=== PATIENT | female | born 1935 | race Two or more races ===

== ENCOUNTER 2016-06-13 11:08 | Outpatient (CLI) | payer MEDICARE, OTHER | END 2016-06-13 11:10 | LOC: LAB 11:08 | DX: Z51.81 Encounter for therapeutic drug level monitoring (principal); Z79.01 Long term (current) use of anticoagulants; I48.91 Unspecified atrial fibrillation | CPT/HCPCS: 36415; 85610 ==

== ENCOUNTER 2016-06-20 10:22 | Outpatient (CLI) | payer MEDICARE, OTHER | END 2016-06-20 10:23 | LOC: LAB 10:22 | DX: I48.91 Unspecified atrial fibrillation (principal); Z79.01 Long term (current) use of anticoagulants | CPT/HCPCS: 36415; 85610 ==

== ENCOUNTER 2016-06-27 10:51 | Outpatient (CLI) | payer MEDICARE, OTHER | END 2016-06-27 10:52 | LOC: LAB 10:51 | DX: Z51.81 Encounter for therapeutic drug level monitoring (principal); Z79.01 Long term (current) use of anticoagulants; I48.91 Unspecified atrial fibrillation | CPT/HCPCS: 36415; 85610 ==

== ENCOUNTER 2016-07-11 11:27 | Outpatient (CLI) | payer MEDICARE, OTHER | END 2016-07-11 11:30 | LOC: LAB 11:27 | DX: Z51.81 Encounter for therapeutic drug level monitoring (principal); Z79.01 Long term (current) use of anticoagulants; I48.91 Unspecified atrial fibrillation | CPT/HCPCS: 36415; 85610 ==

== ENCOUNTER 2016-08-22 13:00 | Outpatient (CLI) | payer MEDICARE, OTHER | END 2016-08-22 13:01 | LOC: LAB 13:00 | DX: Z51.81 Encounter for therapeutic drug level monitoring (principal); Z79.01 Long term (current) use of anticoagulants; I48.91 Unspecified atrial fibrillation | CPT/HCPCS: 36415; 85610 ==

== ENCOUNTER 2016-09-18 13:31 | Outpatient (CLI) | payer MEDICARE, OTHER | END 2016-09-18 13:32 | LOC: LAB 13:31 | DX: Z51.81 Encounter for therapeutic drug level monitoring (principal); Z79.01 Long term (current) use of anticoagulants; I48.91 Unspecified atrial fibrillation | CPT/HCPCS: 36415; 85610 ==

== ENCOUNTER 2016-10-19 13:52 | Outpatient (CLI) | payer MEDICARE, OTHER | END 2016-10-19 13:53 | LOC: LAB 13:52 | DX: I48.91 Unspecified atrial fibrillation (principal); Z79.01 Long term (current) use of anticoagulants | CPT/HCPCS: 36415; 85610 ==

== ENCOUNTER 2016-12-19 12:09 | Outpatient (CLI) | payer MEDICARE, OTHER ==
[2016-12-19 12:32] LABS: APPEARANCE,URINE Cloudy (CLEAR); COLOR,URINE Yellow (YELLOW); OCCULT BLOOD,URINE 3+ (NEGATIVE); PH URINE 5.5 (5.0 - 8.0)
== END 2016-12-19 12:10 ==
LOC: LAB 12:09
DX: I48.91 Unspecified atrial fibrillation (principal); Z79.01 Long term (current) use of anticoagulants
CPT/HCPCS: 36415; 81002; 85610; 87086

== ENCOUNTER 2016-12-26 09:09 | Outpatient (CLI) | payer MEDICARE, OTHER | END 2016-12-26 09:10 | LOC: LAB 09:09 | DX: I48.91 Unspecified atrial fibrillation (principal); Z79.01 Long term (current) use of anticoagulants | CPT/HCPCS: 36415; 85610 ==

== ENCOUNTER 2017-01-02 12:15 | Outpatient (CLI) | payer MEDICARE, OTHER ==
[2017-01-02 12:32] LABS: APPEARANCE,URINE Clear (CLEAR); COLOR,URINE Yellow (YELLOW); OCCULT BLOOD,URINE Trace-lysed (NEGATIVE); PH URINE 5.5 (5.0 - 8.0); UROBILINOGEN URINE 0.2 Eu (0.2-1.0)
[2017-01-02 12:55] LABS: AMORPHOUS SEDIMENT,UR FEW (NEGATIVE)
== END 2017-01-02 12:16 ==
LOC: LAB 12:15
DX: N39.0 Urinary tract infection, site not specified (principal)
CPT/HCPCS: 36415; 81002; 85610; 87086

== ENCOUNTER 2017-01-09 13:19 | Outpatient (CLI) | payer MEDICARE, OTHER | END 2017-01-09 13:20 | LOC: LAB 13:19 | DX: I48.91 Unspecified atrial fibrillation (principal); Z79.01 Long term (current) use of anticoagulants | CPT/HCPCS: 36415; 85610 ==

== ENCOUNTER 2017-01-24 11:58 | Outpatient (CLI) | payer MEDICARE, OTHER | END 2017-01-24 12:05 | LOC: LAB 11:58 | DX: I48.91 Unspecified atrial fibrillation (principal); Z79.01 Long term (current) use of anticoagulants | CPT/HCPCS: 36415; 85610 ==

== ENCOUNTER 2017-01-30 11:59 | Outpatient (CLI) | payer MEDICARE, OTHER | END 2017-01-30 12:00 | LOC: LAB 11:59 | DX: I48.91 Unspecified atrial fibrillation (principal); Z79.01 Long term (current) use of anticoagulants | CPT/HCPCS: 36415; 85610 ==

== ENCOUNTER 2017-03-01 12:03 | Outpatient (CLI) | payer MEDICARE, OTHER ==
[2017-03-01 12:23] LABS: APPEARANCE,URINE Clear (CLEAR); COLOR,URINE Yellow (YELLOW); OCCULT BLOOD,URINE 1+ (NEGATIVE); PH URINE 6.5 (5.0 - 8.0); UROBILINOGEN URINE 0.2 Eu (0.2-1.0)
== END 2017-03-01 12:04 ==
LOC: LAB 12:03
DX: I48.91 Unspecified atrial fibrillation (principal); Z79.01 Long term (current) use of anticoagulants
CPT/HCPCS: 36415; 81002; 85610; 87086

== ENCOUNTER 2017-05-01 10:41 | Outpatient (CLI) | payer MEDICARE, OTHER ==
[2017-05-01 11:09] LABS: APPEARANCE,URINE Clear (CLEAR); COLOR,URINE Yellow (YELLOW); OCCULT BLOOD,URINE 3+ (NEGATIVE)
[2017-05-01 11:26] LABS: AMORPHOUS SEDIMENT,UR FEW (NEGATIVE)
== END 2017-05-01 10:42 ==
LOC: LAB 10:41
DX: I48.91 Unspecified atrial fibrillation (principal); Z79.01 Long term (current) use of anticoagulants; N39.0 Urinary tract infection, site not specified
CPT/HCPCS: 81002; 85610; 87086

== ENCOUNTER 2017-05-24 11:43 | Outpatient (CLI) | payer MEDICARE, OTHER | END 2017-05-24 12:21 | LOC: LAB 11:43 | DX: I48.91 Unspecified atrial fibrillation (principal); Z79.01 Long term (current) use of anticoagulants | CPT/HCPCS: 36415; 85610 ==

== ENCOUNTER 2017-06-14 11:39 | Outpatient (CLI) | payer MEDICARE, OTHER | END 2017-06-14 11:40 | LOC: LAB 11:39 | DX: I48.91 Unspecified atrial fibrillation (principal); Z79.01 Long term (current) use of anticoagulants | CPT/HCPCS: 36415; 85610 ==

== ENCOUNTER 2017-07-30 09:55 | Outpatient (CLI) | payer MEDICARE, OTHER ==
[2017-07-30 10:19] LABS: BASOPHILS % 0.5 (0.0-1.5); EOSINOPHILS % 1.3 % (0.0-6.8); MEAN CORPUSCULAR HEMOGLOBIN 28.8 pg (28.0-34.0); MEAN CORPUSCULAR VOLUME 99.4 fl (80.0-100.0); MONOCYTES % 7.4 % (0.0-11.0); NEUTROPHILS # 2.8 # k/uL (1.4-7.7)
[2017-07-30 10:41] LABS: eGFR (African) > 60; eGFR (Non-African) > 60
[2017-07-30 18:41] LABS: SERUM IRON 15 ug/dL (37-145)
[2017-07-30 21:29] LABS: ADENOVIRUS DNA NEGATIVE (NEGATIVE); BORDETELLA PERTUSSIS DNA NEGATIVE (NEGATIVE); SOURCE: NASOPHARYNGEAL SWAB
== END 2017-07-30 09:56 ==
LOC: LAB 09:55
DX: M79.1 Myalgia (principal); D50.0 Iron deficiency anemia secondary to blood loss (chronic); Z79.01 Long term (current) use of anticoagulants
CPT/HCPCS: 36415; 80053; 82728; 83540; 83550; 85025; 85610; 85651; 87486; 87581; 87633; 87798

== ENCOUNTER 2017-09-04 09:46 | Outpatient (CLI) | payer MEDICARE, OTHER ==
[2017-09-04 10:04] LABS: BASOPHILS % 0.8 (0.0-1.5); EOSINOPHILS % 1.5 % (0.0-6.8); MEAN CORPUSCULAR HEMOGLOBIN 25.1 pg (28.0-34.0); MEAN CORPUSCULAR VOLUME 85.8 fl (80.0-100.0); MONOCYTES % 8.7 % (0.0-11.0); NEUTROPHILS # 2.8 # k/uL (1.4-7.7)
[2017-09-04 16:00] LABS: SERUM IRON 30 ug/dL (37-145)
== END 2017-09-04 09:49 ==
LOC: LAB 09:46
DX: R53.83 Other fatigue (principal); D50.9 Iron deficiency anemia, unspecified
CPT/HCPCS: 36415; 82728; 83540; 83550; 85025

== ENCOUNTER 2017-09-10 14:21 | Outpatient (CLI) | payer MEDICARE, OTHER ==
[2017-09-10] MEDS ORDERED: IRON SUCROSE COMPLEX 200 MG in 0.9 % SODIUM CHLORIDE 250 ML IV SCH (14:30)
[2017-09-10] MEDS ORDERED: IRON SUCROSE COMPLEX 20 MG/ML 10ML VIAL IV ONE (14:30)
[2017-09-10] MEDS ORDERED: SALINE FLUSH 10 ML DISP.SYRIN IVF ONE (14:30)
[2017-09-10] MEDS ORDERED: 0.9 % SODIUM CHLORIDE 250 ML IV.SOLN IV ONE (14:30)
== END 2017-09-10 14:22 ==
LOC: INF 14:21
DX: D50.0 Iron deficiency anemia secondary to blood loss (chronic) (principal)
CPT/HCPCS: J1756; J7050; 96365; S1016

== ENCOUNTER 2017-10-12 12:27 | Outpatient (CLI) | payer MEDICARE, OTHER ==
[2017-10-12] MEDS ORDERED: 0.9 % SODIUM CHLORIDE 250 ML IV.SOLN IV ONE (12:30)
[2017-10-12] MEDS ORDERED: SALINE FLUSH 10 ML DISP.SYRIN IVF ONE (12:30)
[2017-10-12] MEDS ORDERED: IRON SUCROSE COMPLEX 20 MG/ML 10ML VIAL IV ONE (12:30)
[2017-10-12] MEDS ORDERED: IRON SUCROSE COMPLEX 200 MG in 0.9 % SODIUM CHLORIDE 250 ML IV SCH (13:00)
== END 2017-10-12 12:30 ==
LOC: INF 12:27
DX: D50.0 Iron deficiency anemia secondary to blood loss (chronic) (principal)
CPT/HCPCS: J1756; J7050; 96365; S1016

== ENCOUNTER 2017-11-06 13:16 | Outpatient (CLI) | payer MEDICARE, OTHER ==
[2017-11-06 13:47] LABS: APPEARANCE,URINE CLOUDY (CLEAR); COLOR,URINE AMBER (YELLOW); OCCULT BLOOD,URINE 3+ (NEGATIVE); PH URINE 5.5 (5.0 - 8.0); UROBILINOGEN URINE 0.2 Eu (0.2-1.0)
== END 2017-11-06 13:17 ==
LOC: LAB 13:16
DX: R30.0 Dysuria (principal)
CPT/HCPCS: 81002; 87086

== ENCOUNTER 2017-11-19 11:36 | Outpatient (CLI) | payer MEDICARE, OTHER ==
[2017-11-19] MEDS ORDERED: 0.9 % SODIUM CHLORIDE 250 ML IV.SOLN IV ONE (12:00)
[2017-11-19] MEDS ORDERED: IRON SUCROSE COMPLEX 200 MG in 0.9 % SODIUM CHLORIDE 250 ML IV SCH (12:00)
[2017-11-19] MEDS ORDERED: IRON SUCROSE COMPLEX 20 MG/ML 10ML VIAL IV ONE (12:00)
[2017-11-19] MEDS ORDERED: SALINE FLUSH 10 ML DISP.SYRIN IVF ONE (12:00)
== END 2017-11-19 11:37 ==
LOC: INF 11:36
DX: D50.0 Iron deficiency anemia secondary to blood loss (chronic) (principal)
CPT/HCPCS: J1756; J7050; 96365; S1016

== ENCOUNTER 2018-03-05 15:42 | Outpatient (CLI) | payer MEDICARE, OTHER ==
[2018-03-05 18:07] LABS: eGFR (Non-African) > 60
[2018-03-06 00:12] LABS: IRON SERUM 35 ug/dL (37-145); SERUM IRON 35 ug/dL (37-145)
[2018-03-06 00:21] LABS: BASO % 0.5 % (0.0-1.5); EOS % 5.2 % (0.0-6.8); LYMPH ABS # 1.03 thou/uL (0.60-4.00); MCH. 31.4 pg (28.0-34.0); MCV 96.2 fL (80.0-100.0); MONOCYTE % 11.3 % (0.0-11.0); MONOCYTE ABS # 0.42 thou/uL (0.00-0.90); PLATELET COUNT 161 thou/uL (130-400)
== END 2018-03-05 15:44 ==
LOC: LAB 15:42
DX: D50.0 Iron deficiency anemia secondary to blood loss (chronic) (principal)
CPT/HCPCS: 36415; 80053; 82728; 83540; 83550; 85025

== ENCOUNTER 2018-03-13 11:52 | Outpatient (CLI) | payer MEDICARE, OTHER ==
[2018-03-13] MEDS ORDERED: SALINE FLUSH 10 ML DISP.SYRIN IVF ONE (12:00)
[2018-03-13] MEDS ORDERED: IRON SUCROSE COMPLEX 200 MG in 0.9 % SODIUM CHLORIDE 100 ML IV ONE (13:00)
== END 2018-03-13 11:54 ==
LOC: INF 11:52
PROVIDERS: ATTEND Family Medicine
DX: D64.9 Anemia, unspecified (principal); D50.9 Iron deficiency anemia, unspecified
CPT/HCPCS: 96365; J1756; S1016

== ENCOUNTER 2018-04-17 12:06 | Outpatient (CLI) | payer MEDICARE, OTHER ==
[~2018-04-17 12:06] MED LIST: IRON SUCROSE COMPLEX 20 MG/ML 5ML VIAL IV ONE; SALINE FLUSH 10 ML DISP.SYRIN IVF ONE
[2018-04-17] MEDS ORDERED: IRON SUCROSE COMPLEX 200 MG in 0.9 % SODIUM CHLORIDE 100 ML IV ONE (13:00)
[2018-04-17] MEDS ORDERED: SALINE FLUSH 10 ML DISP.SYRIN IVF ONE (13:00)
== END 2018-04-17 12:08 ==
LOC: INF 12:06
PROVIDERS: ATTEND Family Medicine
DX: D50.9 Iron deficiency anemia, unspecified (principal)
CPT/HCPCS: 96365; J1756; S1016

== ENCOUNTER 2018-05-08 10:56 | Outpatient (CLI) | payer MEDICARE, OTHER ==
[2018-05-08] MEDS ORDERED: IRON SUCROSE COMPLEX 200 MG in 0.9 % SODIUM CHLORIDE 100 ML IV ONE (12:00)
[2018-05-08] MEDS ORDERED: SALINE FLUSH 10 ML DISP.SYRIN IVF ONE (12:21)
[2018-05-08] MEDS ORDERED: IRON SUCROSE COMPLEX 20 MG/ML 5ML VIAL IV ONE (12:21)
== END 2018-05-08 10:58 ==
LOC: INF 10:56
PROVIDERS: ATTEND Family Medicine
DX: D50.9 Iron deficiency anemia, unspecified (principal)
CPT/HCPCS: 96365; J1756; S1016